=== PATIENT | male | born 1970 | race Caucasian/White ===

== ENCOUNTER 2023-04-10 18:49 | Emergency (ER) | payer SELFPAY ==
[2023-04-10] MEDS ORDERED: Ibuprofen 600 MG Tab PO ONE (20:30)
[2023-04-10] MEDS ORDERED: Acetaminophen/HYDROcodone 325-5 MG Tab PO ONE (21:19)
== END 2023-04-10 21:36 | disposition home or self-care (01) ==
LOC: MW.ED 18:49
DX: M10.9 Gout, unspecified (principal); Z88.2 Allergy status to sulfonamides; Z79.899 Other long term (current) drug therapy
CPT/HCPCS: 73630; 99283; A9270